=== PATIENT | male | born 2000 | race Caucasian/White ===

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

== ENCOUNTER 2020-01-23 14:11 | Emergency (ER) | payer MEDICAID ==
[~2020-01-23] VITALS: Ht 175.3 cm; Wt 95.5 kg
[~2020-01-23 14:11] MED LIST: CALMOSEPTINE OI71 GM; CLARITIN REDITAB5 MG PO; DEPAKOTE500 MG PO; INVEGA6 MG PO; MELATONIN5 M1 PO; NEURONTIN100 MG/CAP PO; TYLENOL 325MG325 MG; VYVANSE40 MG PO; ZOFRAN ODT4 MG PO; ZYPREXA ZYDIS5 MG PO
[2020-01-23 14:17] VITALS: TEMP 98.5
[2020-01-23] MEDS ORDERED: MELATONIN5 M1 SL (14:27)
[2020-01-23 14:47] LABS: BASO % 0.7 % (0.0-2.0); EOS # 0.1 (0.0-0.7); EOS % 0.9 % (0-4.0); GRAN # 3.5 (1.4-6.5); GRAN % 60.4 % (42.2-75.2); HEMOGLOBIN 15.1 g/dl (12.5-16.1); LYMPH # 1.6 (1.2-3.4); LYMPH % 27.2 % (20.0-51.0); MEAN CELL VOLUME 94 fl (80.0-95.0); MEAN CORPUSCULAR HEMOGLOBIN 33 pg (26.0-32.0); MEAN CORPUSCULAR HGB CONC 35 g/dl (33.0-37.0); MEAN PLATELET VOLUME 9.8 fl (7.4-10.4); MONO # 0.6 (0.1-0.6); MONO % 10.6 % (1.7-9.3); PLATELET COUNT 230 K/mm3 (130-400); RED BLOOD COUNT 4.56 M/mm3 (4.20-5.60); REDCELL DISTRIBUTION WIDTH-CV 11.9 % (11.5-14.5)
[2020-01-23 14:59] LABS: ALANINE AMINOTRANSFERASE 47 U/L (4-49); ALBUMIN 4.6 gm/dL (3.5-5.0); ALKALINE PHOSPHATASE 82 U/L (50-136); ANION GAP 9 mmol/L (7-16); AST,SGOT 33 U/L (15-37); BILIRUBIN,TOTAL 0.5 mg/dL (0.0-1.0); BLOOD UREA NITROGEN 10 mg/dL (9-20); CALCIUM 8.9 mg/dL (8.4-10.2); CARBON DIOXIDE 28 mmol/L (22-30); CHLORIDE 101 mmol/L (98-107); GLUCOSE 115 mg/dL (74-106); LIPASE 31 U/L (23-300); POTASSIUM 3.8 mmol/L (3.4-5.0); SODIUM 139 mmol/L (137-145); TOTAL PROTEIN 7.5 gm/dL (6.4-8.2)
[2020-01-23 15:06] LABS: C-REACTIVE PROTEIN < 0.5 mg/dL (0.0-0.9)
[2020-01-23 15:11] LABS: TROPONIN-I < 0.012 ng/mL (0.000-0.035)
[2020-01-23 15:48] VITALS: BP 117/74; PULSE 82
== END 2020-01-23 15:48 | disposition home or self-care (01) ==
LOC: COL.ER 14:11
PROVIDERS: Emergency Medicine
DX: R07.9 Chest pain, unspecified (principal); Z91.048 Other nonmedicinal substance allergy status

== ENCOUNTER 2020-06-11 21:07 | Emergency (ER) | payer MEDICAID ==
[~2020-06-11] VITALS: Ht 177.8 cm; Wt 68.2 kg
[~2020-06-11 21:07] MED LIST changes: +MELATONIN5 M1 SL
[2020-06-11 21:09] VITALS: TEMP 100.1
[2020-06-11] MEDS ORDERED: AMOXICILLIN 8751 TAB PO (21:47)
[2020-06-11 21:59] VITALS: BP 144/70; PULSE 68
== END 2020-06-11 21:59 | disposition home or self-care (01) ==
LOC: COL.ER 21:07
DX: H66.91 Otitis media, unspecified, right ear (principal); F32.9 Major depressive disorder, single episode, unspecified

== ENCOUNTER 2020-06-15 13:14 | Emergency (ER) | payer MEDICAID ==
[~2020-06-15 13:14] MED LIST changes: +AMOXICILLIN 8751 TAB PO
[2020-06-15 13:49] LABS: HEMATOCRIT 44.2 % (42.0-52.0); MEAN CELL VOLUME 97 fl (80.0-100.0); MEAN CORPUSCULAR HEMOGLOBIN 33 pg (27.0-31.0); MEAN CORPUSCULAR HGB CONC 34 g/dl (33.0-37.0); MEAN PLATELET VOLUME 9.2 fl (7.4-10.4); PLATELET COUNT 285 K/mm3 (130-400); RED BLOOD COUNT 4.57 M/mm3 (4.20-5.60); REDCELL DISTRIBUTION WIDTH-CV 12.1 % (11.5-14.5)
[2020-06-15 14:02] LABS: ALANINE AMINOTRANSFERASE 45 U/L (4-49); ALBUMIN 4.5 gm/dL (3.5-5.0); ALKALINE PHOSPHATASE 76 U/L (50-136); ANION GAP 10 mmol/L (7-16); AST,SGOT 30 U/L (15-37); BILIRUBIN,TOTAL 0.2 mg/dL (0.0-1.0); BLOOD UREA NITROGEN 10 mg/dL (9-20); CALCIUM 9.2 mg/dL (8.4-10.2); CARBON DIOXIDE 28 mmol/L (22-30); CHLORIDE 102 mmol/L (98-107); CREATININE, serum 0.66 (0.66-1.25); GLUCOSE 100 mg/dL (74-106); POTASSIUM 4.3 mmol/L (3.4-5.0); SODIUM 139 mmol/L (137-145); TOTAL PROTEIN 8.5 gm/dL (6.4-8.2)
[2020-06-15 14:06] LABS: ACETAMINOPHEN < 10 ug/mL (10-30); ALCOHOL(ethanol),MEDICAL < 10 mg/dL; SALICYLATE < 1.0 mg/dL
[2020-06-15 14:10] LABS: COLLECTION METHOD CLEAN CATCH
[2020-06-15 14:14] LABS: BASOPHIL 1 % (0-2); EOSINOPHIL 2 % (0-4); HYPOCHROMIA 1+; LYMPHOCYTE 38 % (20.0-51.0); METAMYELOCYTE 1 % (0-0); NEUTROPHILS 51 % (42.0-75.2); PLATELET ESTIMATE NORMAL (NORMAL)
[2020-06-15 14:16] LABS: PH 6 (5-8); SQUAMOUS EPITHELIAL 0-2 /hpf; URINE APPEARANCE Clear; URINE BACTERIA None Seen /hpf; URINE BILIRUBIN Negative (NEGATIVE); URINE BLOOD Negative (NEGATIVE); URINE COLOR Straw; URINE GLUCOSE Negative (NEGATIVE); URINE KETONE Negative (NEGATIVE); URINE LEUKOCYTE ESTERASE Negative (NEGATIVE); URINE NITRATE Negative (NEGATIVE); URINE PROTEIN(semi-quant) Negative (NEGATIVE); URINE RBC None Seen /hpf; URINE UROBILINOGEN Negative (NEGATIVE)
[2020-06-15 14:35] LABS: TRICYCLIC ANTIDEPRESS URINE NEGATIVE
[2020-06-15 15:36] VITALS: TEMP 97.9
[2020-06-15] MEDS ORDERED: MUCINEX 60600 MG/TA1 PO (16:54)
[2020-06-15] MEDS ORDERED: TYLENOL 500MG500 MG PO (16:55)
[2020-06-15] MEDS ORDERED: INVEGA3 MG PO (19:52)
[2020-06-16 00:27] VITALS: BP 132/70; PULSE 77
== END 2020-06-16 00:27 ==
LOC: COL.ER 13:14
PROVIDERS: Physician Assistant
DX: R45.851 Suicidal ideations (principal); F32.9 Major depressive disorder, single episode, unspecified; R51.9 Headache, unspecified; Z20.822 Contact with and (suspected) exposure to COVID-19

== ENCOUNTER 2020-07-15 23:45 | Emergency (ER) | payer MEDICAID ==
[~2020-07-15] VITALS: Ht 175.3 cm; Wt 86.4 kg
[~2020-07-15 23:45] MED LIST changes: +INVEGA3 MG PO; +MUCINEX 60600 MG/TA1 PO; +TYLENOL 500MG500 MG PO
[2020-07-16 00:41] VITALS: BP 132/112; PULSE 88; TEMP 97.7
== END 2020-07-16 02:20 | disposition home or self-care (01) ==
LOC: COL.ER 23:45
DX: R06.02 Shortness of breath (principal); J45.909 Unspecified asthma, uncomplicated; F32.9 Major depressive disorder, single episode, unspecified; F43.10 Post-traumatic stress disorder, unspecified; F17.210 Nicotine dependence, cigarettes, uncomplicated; Z91.048 Other nonmedicinal substance allergy status

== ENCOUNTER 2020-08-12 20:47 | Emergency (ER) | payer MEDICAID ==
[~2020-08-12] VITALS: Ht 175.3 cm; Wt 81.8 kg
[2020-08-12 20:47] VITALS: TEMP 98.5
[2020-08-12 21:43] LABS: COLLECTION METHOD CLEAN CATCH
[2020-08-12 21:48] LABS: BASO # 0.1 (0.0-0.2); BASO % 1.1 % (0.0-2.0); EOS # 0.2 (0.0-0.7); GRAN # 3.1 (1.4-6.5); GRAN % 49.2 % (42.2-75.2); HEMATOCRIT 43.8 % (42.0-52.0); HEMOGLOBIN 15.2 g/dl (13.5-18.0); LYMPH # 2.3 (1.2-3.4); LYMPH % 37.1 % (20.0-51.0); MEAN CELL VOLUME 95 fl (80.0-100.0); MEAN CORPUSCULAR HEMOGLOBIN 33 pg (27.0-31.0); MEAN CORPUSCULAR HGB CONC 35 g/dl (33.0-37.0); MEAN PLATELET VOLUME 9.6 fl (7.4-10.4); MONO # 0.6 (0.1-0.6); MONO % 9.4 % (1.7-9.3); PLATELET COUNT 223 K/mm3 (130-400); RED BLOOD COUNT 4.59 M/mm3 (4.20-5.60); REDCELL DISTRIBUTION WIDTH-CV 12.7 % (11.5-14.5)
[2020-08-12 22:00] LABS: AMORPHOUS CRYSTAL Present /uL; BUDDING YEAST Present /hpf; MUCOUS Present /lpf; PH 7 (5-8); SQUAMOUS EPITHELIAL None Seen /hpf; URINE APPEARANCE Turbid; URINE BACTERIA None Seen /hpf; URINE BILIRUBIN Negative (NEGATIVE); URINE BLOOD Negative (NEGATIVE); URINE COLOR Yellow; URINE GLUCOSE Negative (NEGATIVE); URINE KETONE Negative (NEGATIVE); URINE LEUKOCYTE ESTERASE Negative (NEGATIVE); URINE NITRATE Negative (NEGATIVE); URINE PROTEIN(semi-quant) Negative (NEGATIVE); URINE RBC 0-2 /hpf; URINE UROBILINOGEN >=4.0 mg/dL (NEGATIVE)
[2020-08-12 22:25] LABS: ALANINE AMINOTRANSFERASE 56 U/L (4-49); ALBUMIN 4.2 gm/dL (3.5-5.0); ALKALINE PHOSPHATASE 74 U/L (50-136); ANION GAP 6 mmol/L (7-16); AST,SGOT 30 U/L (15-37); BILIRUBIN,TOTAL 0.3 mg/dL (0.0-1.0); BLOOD UREA NITROGEN 14 mg/dL (9-20); C-REACTIVE PROTEIN < 0.5 mg/dL (0.0-0.9); CALCIUM 8.9 mg/dL (8.4-10.2); CARBON DIOXIDE 30 mmol/L (22-30); CHLORIDE 103 mmol/L (98-107); GLUCOSE 94 mg/dL (74-106); POTASSIUM 3.7 mmol/L (3.4-5.0); SODIUM 138 mmol/L (137-145); TOTAL PROTEIN 7.3 gm/dL (6.4-8.2)
[2020-08-12 22:51] VITALS: BP 125/82; PULSE 86
== END 2020-08-12 23:00 | disposition home or self-care (01) ==
LOC: COL.ER 20:47
PROVIDERS: Emergency Medicine
DX: R10.32 Left lower quadrant pain (principal); R11.10 Vomiting, unspecified; F32.9 Major depressive disorder, single episode, unspecified; J45.909 Unspecified asthma, uncomplicated; F17.290 Nicotine dependence, other tobacco product, uncomplicated
CPT/HCPCS: J1885; J2405; J7030

== ENCOUNTER 2020-09-19 00:11 | Emergency (ER) | payer MEDICAID ==
[~2020-09-19] VITALS: Ht 175.3 cm; Wt 84.1 kg
[2020-09-19] MEDS ORDERED: PREDNISONE20 MG PO (00:34)
[2020-09-19 00:57] VITALS: PULSE 88; TEMP 98.1
== END 2020-09-19 01:08 | disposition home or self-care (01) ==
LOC: COL.ER 00:11
DX: L55.1 Sunburn of second degree (principal); F90.9 Attention-deficit hyperactivity disorder, unspecified type
CPT/HCPCS: J7512

== ENCOUNTER 2020-10-03 15:25 | Emergency (ER) | payer MEDICAID ==
[~2020-10-03] VITALS: Ht 167.6 cm; Wt 90.9 kg
[~2020-10-03 15:25] MED LIST changes: +PREDNISONE20 MG PO
[2020-10-03 15:31] VITALS: TEMP 99.3
[2020-10-03 16:10] VITALS: BP 126/68; PULSE 93
== END 2020-10-03 16:10 | disposition home or self-care (01) ==
LOC: COL.ER 15:25
DX: S60.011A Contusion of right thumb without damage to nail, initial encounter (principal); L55.9 Sunburn, unspecified; F32.9 Major depressive disorder, single episode, unspecified; F17.210 Nicotine dependence, cigarettes, uncomplicated; Z79.899 Other long term (current) drug therapy; Y04.2XXA Assault by strike against or bumped into by another person, initial encounter; Y92.009 Unspecified place in unspecified non-institutional (private) residence as the place of occurrence of the external cause

== ENCOUNTER 2020-10-28 01:29 | Emergency (ER) | payer MEDICAID ==
[~2020-10-28] VITALS: Ht 175.3 cm; Wt 68.2 kg
[2020-10-28 05:00] VITALS: BP 129/68; PULSE 75; TEMP 97.9
== END 2020-10-28 05:00 | disposition home or self-care (01) ==
LOC: COL.ER 01:29
DX: H60.92 Unspecified otitis externa, left ear (principal); F32.9 Major depressive disorder, single episode, unspecified; Z79.899 Other long term (current) drug therapy

== ENCOUNTER 2021-07-26 22:57 | Emergency (ER) | payer MEDICAID ==
[~2021-07-26] VITALS: Ht 175.3 cm; Wt 86.4 kg
[2021-07-26 22:59] VITALS: TEMP 98.5
[2021-07-26] MEDS ORDERED: PREDNISONE20 MG PO (23:19)
[2021-07-26] MEDS ORDERED: ATARAX 25MG25 MG/TAB PO (23:19)
[2021-07-26 23:40] VITALS: BP 114/78; PULSE 76
== END 2021-07-26 23:40 | disposition home or self-care (01) ==
LOC: COL.ER 22:57
DX: T78.40XA Allergy, unspecified, initial encounter (principal); F17.200 Nicotine dependence, unspecified, uncomplicated; Z88.8 Allergy status to other drugs, medicaments and biological substances; Z28.310 Unvaccinated for COVID-19
CPT/HCPCS: J1100; J1200

== ENCOUNTER 2021-09-11 19:36 | Emergency (ER) | payer MEDICAID ==
[~2021-09-11] VITALS: Ht 170.2 cm; Wt 99.1 kg
[~2021-09-11 19:36] MED LIST changes: +ATARAX 25MG25 MG/TAB PO
[2021-09-11 19:37] VITALS: BP 126/92; PULSE 92; TEMP 98.7
== END 2021-09-11 20:59 | disposition left against medical advice (07) ==
LOC: COL.ER 19:36
DX: R51.9 Headache, unspecified (principal); R11.0 Nausea